=== PATIENT | female | born 1995 | race Two or more races ===

== ENCOUNTER → 2020-07-19 | Outpatient (REF) | payer OTHER | LOC: M LAB REF 13:00 | PROVIDERS: ATTEND Physician Assistant | DX: R30.0 Dysuria (principal) ==

== ENCOUNTER 2023-03-31 12:08 | Outpatient (CLI) | payer OTHER ==
[~2023-03-31] VITALS: Ht 175.3 cm; Wt 69.7 kg
[2023-03-31 12:26] VITALS: BP 125/73
[2023-03-31] MEDS ORDERED: KP P1TAB PO (12:31)
[2023-03-31] MEDS ORDERED: HOME MED LIST COMPLETE! XX SCH (12:35)
== END 2023-03-31 13:38 | disposition home or self-care (01) ==
LOC: M LDO 12:08
PROVIDERS: ATTEND Registered Nurse
DX: O36.8130 Decreased fetal movements, third trimester, not applicable or unspecified (principal); Z3A.30 30 weeks gestation of pregnancy; Z88.0 Allergy status to penicillin; Z91.013 Allergy to seafood; Z91.018 Allergy to other foods
CPT/HCPCS: 59025; G0463

== ENCOUNTER 2023-05-21 18:27 | Inpatient (IN) | payer OTHER ==
[~2023-05-21] VITALS: Ht 170.2 cm; Wt 75.2 kg
[2023-05-21] VITALS (10 sets, daily range): BP systolic 133–163; BP diastolic 69–95
[~2023-05-21 18:27] MED LIST: KP P1TAB PO
[2023-05-21] MEDS ORDERED: VALA500T5 PO (18:54)
[2023-05-21] MEDS ORDERED: ACET1TAB55 PO (18:54)
[2023-05-21] MEDS ORDERED: HOME MED LIST COMPLETE! XX SCH (18:55)
[2023-05-21 20:06] LABS: BASO % 0.2 % (0.0-1.0); EOS # 0.2 10^3/uL (0.0-0.5); HEMATOCRIT 35.3 % (36.0-47.0); LYMPH # 1.6 10^3/uL (1.5-5.0); LYMPH % 17.2 % (24.0-44.0); MEAN CORPUSCULAR HEMOGLOBIN 30.8 pg (27.0-33.0); MEAN CORPUSCULAR VOLUME 90.5 fl (80.0-96.0); MONO # 0.8 10^3/uL (0.0-0.8); NEUTROPHILS # 6.5 10^3/uL (1.5-8.5); NEUTROPHILS % 70.6 % (36.0-66.0); PLATELET COUNT, AUTOMATED 139 10^3/uL (150-450); WHITE BLOOD COUNT 9.2 10^3/uL (4.0-10.0)
[2023-05-21 20:10] LABS: TOTAL PROTEIN,RANDOM URINE 10.4 MG/DL (0.0-14.0)
[2023-05-21 20:15] LABS: CREATININE,RANDOM URINE 64.8 MG/DL
[2023-05-21 20:28] LABS: LDH LACTATE DEHYDROGENASE 181 U/L (120-246)
[2023-05-21 20:29] LABS: ALBUMIN 2.5 G/DL (3.2-5.2); ALKALINE PHOSPHATASE 176 U/L (46-116); ALT/SGPT 10 U/L (7.0-40); AST/SGOT 11 U/L (<34); BILIRUBIN,TOTAL 0.3 MG/DL (0.3-1.2); BLOOD UREA NITROGEN 9 MG/DL (9-23); CARBON DIOXIDE LEVEL 22 MMOL/L (20-31); CHLORIDE LEVEL 106 MMOL/L (98-107); CREATININE FOR GFR 0.72 MG/DL (0.55-1.30); GLOMERULAR FILTRATION RATE > 60.0 (>60); GLUCOSE, FASTING 85 MG/DL (60-100); POTASSIUM SERUM 3.7 MMOL/L (3.5-5.1); SODIUM LEVEL 139 MMOL/L (136-145); TOTAL PROTEIN 5.4 G/DL (5.7-8.2)
[2023-05-21] MEDS ORDERED: LACTATED RINGER'S 1000 ML IV STA (20:58)
[2023-05-21] MEDS ORDERED: OXYTOCIN INJ 10UNITS/ML 1ML VIAL IM PRN (21:00)
[2023-05-21] MEDS ORDERED: METHYLERGONOVINE MALEATE 0.2MG/ML 1ML VIAL IM PRN (21:00)
[2023-05-21] MEDS ORDERED: LIDOCAINE 1% MDV 20ML VIAL INFIL PRN (21:00)
[2023-05-21] MEDS ORDERED: CARBOPROST TROMETHAMINE 250 MCG/ML AMP IM PRN (21:00)
[2023-05-21] MEDS ORDERED: PROMETHAZINE 25MG/ML 1ML VIAL IV PRN (21:45)
[2023-05-21] MEDS ORDERED: NALBUPHINE HCL 10 MG/ML 1ML AMP IV PRN (21:45)
[2023-05-21] MEDS ORDERED: LABETALOL 100MG/20ML VIAL IV PRN (21:45)
[2023-05-21] MEDS: miSOPROStol 50MCG 1/2 TABLET PO PRN (23:30)
[2023-05-21] MEDS ORDERED: FIORICET TAB PO PRN (23:35)
[2023-05-22] VITALS (38 sets, daily range): BP systolic 95–166; BP diastolic 56–96
[2023-05-22] MEDS: miSOPROStol 50MCG 1/2 TABLET PO PRN (04:34)
[2023-05-22] MEDS ORDERED: OXYTOCIN DRIP 30 UNITS in IV 1 EA IV SCH (15:35)
[2023-05-22] MEDS ORDERED: ePHEDrine SULFATE 25 MG/5 ML(5MG/ML) SYRINGE IVP PRN (17:05)
[2023-05-22] MEDS ORDERED: LR 500 ML IV PRN (17:05)
[2023-05-22] MEDS ORDERED: ONDANSETRON 4MG 2ML VIAL IV PRN (17:05)
[2023-05-22] MEDS ORDERED: EPIDURAL/PCA KEYS XX PRN (17:05)
[2023-05-22] MEDS ORDERED: FENTANYL/ROPIVACAINE/NACL BAG 100 ML EPIDURAL SCH (17:05)
[2023-05-22] MEDS ORDERED: diphenhydrAMINE 50MG/ML VIAL IV PRN (17:05)
[2023-05-22] MEDS ORDERED: NALOXONE INJ 0.4MG/1ML VIAL IV PRN (17:05)
[2023-05-22] MEDS ORDERED: LR 1,000 ML IV ONE (17:15)
[2023-05-22] MEDS ORDERED: LR 1,000 ML IV SCH (17:15)
[2023-05-22] MEDS ORDERED: D5W/0.45% SODIUM CHLORIDE 1,000 ML IV SCH (20:05)
[2023-05-23] VITALS (7 sets, daily range): BP systolic 123–145; BP diastolic 56–87; O2SAT 98–99
[2023-05-23] MEDS ORDERED: DOCUSATE SODIUM 100MG CAPSULE PO PRN (00:05)
[2023-05-23] MEDS ORDERED: MOM 30ML SUSPENSION UDC PO PRN (00:05)
[2023-05-23] MEDS ORDERED: ONDANSETRON 4MG 2ML VIAL IV PRN (00:05)
[2023-05-23] MEDS ORDERED: RHOGAM 300MCG (1500IU) INJ IM SCH (00:05)
[2023-05-23] MEDS ORDERED: IBUPROFEN 600MG TAB PO PRN (00:05)
[2023-05-23] MEDS: LR 1,000 ML IV SCH ×3 (00:05→16:05)
[2023-05-23] MEDS ORDERED: ANUSOL HC CREAM 30GM TOP PRN (00:05)
[2023-05-23] MEDS ORDERED: DIBUCAINE 1% OINTMENT 30GM TOP PRN (00:05)
[2023-05-23] MEDS ORDERED: METHYLERGONOVINE MALEATE 0.2 MG TAB PO PRN (00:05)
[2023-05-23] MEDS ORDERED: ACETAMINOPHEN 500 MG TAB PO PRN (00:05)
[2023-05-23] MEDS ORDERED: ACETAMINOPHEN TAB 650MG DOSE (2X325MG) PO PRN (00:05)
[2023-05-23] MEDS ORDERED: OXYTOCIN DRIP 30 UNITS in IV 1 EA IV SCH ×4 (00:05)
[2023-05-23] MEDS: PRENATAL VITAMINS CHEWABLE TABLET PO SCH (08:44)
[2023-05-23] MEDS: valACYclovir HCL 500 MG TAB PO SCH (08:46)
[2023-05-23] MEDS: IBUPROFEN 800 MG TAB PO PRN (08:46)
[2023-05-24] MEDS: LR 1,000 ML IV SCH (00:05)
[2023-05-24] MEDS: IBUPROFEN 800 MG TAB PO PRN (02:48)
[2023-05-24 06:00] VITALS: BP 133/81; O2SAT 97
[2023-05-24] MEDS: PRENATAL VITAMINS CHEWABLE TABLET PO SCH (08:30)
[2023-05-24] MEDS: valACYclovir HCL 500 MG TAB PO SCH (08:31)
[2023-05-25] MEDS ORDERED: MEASLES,MUMPS,RUBELLA VACCINE INJ (MMR-II) SC.IMMUN ONE (09:00)
== END 2023-05-24 14:22 | disposition home or self-care (01) | DRG 807 ==
LOC: M LDO 18:27 → M LDI 20:39 → M OBS 05-23 02:40
PROVIDERS: ADMIT Obstetrics & Gynecology; ATTEND Obstetrics & Gynecology
PROC: 3E033VJ Introduction of Other Hormone into Peripheral Vein, Percutaneous Approach (ICD-10-PCS; 2023-05-21)
PROC: 10E0XZZ Delivery of Products of Conception, External Approach (ICD-10-PCS; principal; 2023-05-22)
PROC: 0HQ9XZZ Repair Perineum Skin, External Approach (ICD-10-PCS; 2023-05-22)
DX: O13.4 Gestational [pregnancy-induced] hypertension without significant proteinuria, complicating childbirth (principal); Z37.0 Single live birth; Z3A.38 38 weeks gestation of pregnancy; O69.82X0 Labor and delivery complicated by other cord entanglement, without compression, not applicable or unspecified; O69.1XX0 Labor and delivery complicated by cord around neck, with compression, not applicable or unspecified; O70.0 First degree perineal laceration during delivery

== ENCOUNTER → 2024-04-29 | Outpatient (REF) | payer OTHER ==
[~2024-04-29] MED LIST changes: +ACET1TAB55 PO; +VALA500T5 PO
== END ==
LOC: M PLAIMG 08:31 → M PLARAD 08:31
PROVIDERS: ATTEND Internal Medicine
DX: M79.604 Pain in right leg (principal)